=== PATIENT | female | born 1950 | race Hispanic/Latino ===

== ENCOUNTER 2017-08-12 18:34 | Emergency (ER) | payer BC ==
--- NOTE | 2017-08-12 20:28 | RAD ---
TWO VIEWS OF THE LEFT FOREARM: INDICATIONS: Fall with left arm pain. FINDINGS: There is posterolateral dislocation of the left elbow joint. There is soft tissue swelling surroundi ng the left elbow. The visualized aspects of the ulna and radius appear intact. IMPRESSION: Posterolateral left elbow dislocation. POS: [facility]
--- NOTE | 2017-08-12 20:30 | RAD ---
TWO VIEWS OF THE LEFT ELBOW: INDICATIONS: Fall with left elbow pain. COMPARISON: None. FINDINGS: There is posterolateral dislocation of the elbow. No definite acute fracture is grossly evident. Th ere is soft tissue swelling involving the medial aspect of the left elbow joint. IMPRESSION: Posterolateral left elbow dislocation. POS: [facility]
[2017-08-12] MEDS ORDERED: Diprivan 20 ML ONE (20:45)
--- NOTE | 2017-08-12 21:44 | RAD ---
TWO VIEWS OF THE LEFT ELBOW: INDICATIONS: Post reduction. COMPARISON: Prior two views of the left elbow dated 08/12/2017 at 8:29 p.m. FINDINGS: Since the comparison examination, there has been interval placement of a posterior splint. The elbow joint remains dislocated posteriorly and laterally. IMPRESSION: Persistent dislocation of the left elbow joint. POS: [facility]
[2017-08-12] MEDS ORDERED: Ondansetron HCl/PF 4 MG/2 ML Vial ONE (21:49)
[2017-08-12] MEDS ORDERED: Morphine 4 MG/ML VIAL ONE (21:49)
== END 2017-08-12 22:36 | disposition home or self-care (01) ==
LOC: ERS 18:34
DX: S53.125A Posterior dislocation of left ulnohumeral joint, initial encounter (principal); S53.145A Lateral dislocation of left ulnohumeral joint, initial encounter; I48.91 Unspecified atrial fibrillation; F41.9 Anxiety disorder, unspecified; F32.9 Major depressive disorder, single episode, unspecified; Z79.899 Other long term (current) drug therapy; W01.10XA Fall on same level from slipping, tripping and stumbling with subsequent striking against unspecified object, initial encounter; Y92.59 Other trade areas as the place of occurrence of the external cause
CPT/HCPCS: 24600; 96374; 96375; 99152; J2270; J2405; J2704

== ENCOUNTER 2017-08-14 11:11 | Day surgery (SDC) | payer BC ==
[2017-08-14 11:58] LABS: #Basophils 0.1 thou/uL (0.0-0.2); #Eosinphils 0.1 thou/uL (0.0-0.7); #Lymphocytes 1.7 thou/uL (1.20-3.40); #Monocytes 0.5 thou/uL (0.11-0.59); #Neutrophils 4.3 thou/uL (1.40-6.50); %Basophils 0.8 % (0.0-1.0); %Eosinophils 0.9 % (0.0-10.0); %Monocytes 7.7 % (0.0-10.0); %Neutrophils 64.5 % (42.0-75.0); Hemoglobin 12.7 g/dL (12.0-16.0); Mean Corpuscular HGB CONC 33.2 g/dL (32.0-36.0); Mean Platelet Volume 7.4 fL (7.4-10.4); Platelet Count 266 thou/uL (130-400); RBC Distribution Width 11.4 % (11.5-14.5); Red Blood Cell (RBC) Count 3.73 mill/uL (4.20-5.40); White Blood Cell (WBC) Count 6.6 thou/uL (4.8-10.8)
[2017-08-14] MEDS ORDERED: CEFAZOLIN/Water 2 GM/20 ML SYRINGE ONE (11:58)
[2017-08-14] MEDS ORDERED: Midazolam HCl 2 mg/2 ml Vial ONE (12:05)
[2017-08-14] MEDS ORDERED: PROPOFOL 20 ML ONE (12:09)
[2017-08-14] MEDS ORDERED: Lidocaine 1% PF 5 ML VIAL ONE ×2 (12:09→17:13)
[2017-08-14] MEDS ORDERED: HYDROcodone/Acetaminophen 5/325 mg Tablet ONE (13:15)
--- NOTE | 2017-08-14 14:20 | RAD ---
THREE FLUOROSCOPIC SPOT IMAGES OF THE LEFT ELBOW: INDICATIONS: Left elbow dislocation. COMPARISON: Prior exam dated 08/12/2017 at 9:16 p.m. IMPRESSION: Since the comparison examination, there has been interval reduction of the posterolateral elbow dislo cation. Joint alignment appears within normal limits. There is overlying fiberglass splint material that slightly limits image detail. FINDINGS: Interval reduction of left posterolateral elbow dislocation. POS: [facility]
--- NOTE | 2017-08-14 14:26 | OP ---
DATE OF PROCEDURE: 08/14/2017 PREOPERATIVE DIAGNOSIS: Left elbow dislocation. POSTOPERATIVE DIAGNOSIS: Left elbow dislocation. PROCEDURES PERFORMED: 1. Closed reduction. 2. Long arm splint application. 3. Stress Fluoro Exam of MUCL and LUCL STAFF: Mandeep Hughes M.D. LUBE MAN: None. ANESTHESIA: Dr. Haas. The patient received TIVA. ESTIMATED BLOOD LOSS: None. TOURNIQUET TIME: None. ANTIBIOTICS: None. IMPLANT: None. HISTORY OF PRESENT ILLNESS: Ms. Espinoza is a 67-year-old female on the , sustained a left elbow dislocation. The patient had attempted closed reduction in the ER, which failed. The patient had post-reduction films showing a dislocated elbow; given that, I felt the patient required a re-reduction. The patient was seen in my clinic today. She is n.p.o. She was brought to the OR, received sedation per Anesthesia. Discussed risks and benefits of surgery to include pain, scar, bleeding, need for further surgeries, failure of procedure and continued pain despite surgical intervention. The patient understood these risks and benefits and elected to proceed. PROCEDURE IN DETAIL: Time out was performed designating the patient's left upper extremity as the operative site based on sight, consents, markings. After completion of timeout, the patient was sedated. I pulled the patient picked the arm up. The patient's arm caught in position. I looked under AP and lateral radiographs and saw the patient's radiocapitellar line, as well as ulnar lines were in place. I put it through an arc of motion where it was stable. The patient had some medial widening, but appeared stable on the lateral stress. Given this, the patient was placed in a 90 degree position in neutral supination and pronation with a sugar tong in a posterior splint. The patient will remain in that until I see her back in 5-7 days. I am able to treat this patient nonoperative. We will see how the patient does stability jones, I can potentially treat her nonoperatively given she has no acute fractures and has stability laterally and given the patient's age. DHARA
[2017-08-14] MEDS ORDERED: PROPOFOL 200 MG/20 ML VIAL ONE (17:13)
== END 2017-08-14 14:00 | disposition home or self-care (01) ==
LOC: SDC 11:11
PROVIDERS: ATTEND Orthopaedic Surgery
PROC: 0RSMXZZ Reposition Left Elbow Joint, External Approach (ICD-10-PCS; principal; 2017-08-14)
DX: S53.125A Posterior dislocation of left ulnohumeral joint, initial encounter (principal); S53.145A Lateral dislocation of left ulnohumeral joint, initial encounter; F32.9 Major depressive disorder, single episode, unspecified; I48.91 Unspecified atrial fibrillation; E03.9 Hypothyroidism, unspecified; F41.9 Anxiety disorder, unspecified; I35.1 Nonrheumatic aortic (valve) insufficiency; Z79.899 Other long term (current) drug therapy; Z88.6 Allergy status to analgesic agent; Z88.5 Allergy status to narcotic agent; Z88.8 Allergy status to other drugs, medicaments and biological substances; Z90.710 Acquired absence of both cervix and uterus; Z98.890 Other specified postprocedural states
CPT/HCPCS: 76001; 85025; J2001; J2250; J2704

== ENCOUNTER 2017-08-16 22:41 | Emergency (ER) | payer BC | END 2017-08-17 00:15 | disposition home or self-care (01) | LOC: ERS 22:41 | DX: S50.12XD Contusion of left forearm, subsequent encounter (principal); I48.91 Unspecified atrial fibrillation; F41.9 Anxiety disorder, unspecified; F32.9 Major depressive disorder, single episode, unspecified; Z79.899 Other long term (current) drug therapy; X58.XXXD Exposure to other specified factors, subsequent encounter | CPT/HCPCS: 99283 ==